=== PATIENT | male | born 1935 | race Caucasian/White ===

== ENCOUNTER 2021-08-23 12:13 | Emergency (ER) | payer MEDICARE, BC ==
[2021-08-23 12:54] LABS: #Basophils 0.1 thou/uL (0.0-0.2); #Eosinphils 0.2 thou/uL (0.0-0.7); #Lymphocytes 1.9 thou/uL (1.20-3.40); #Monocytes 0.7 thou/uL (0.11-0.59); #Neutrophils 6.4 thou/uL (1.40-6.50); %Basophils 0.8 % (0.0-1.0); %Eosinophils 2.2 % (0.0-10.0); %Lymphocytes 19.9 % (21.0-51.0); %Monocytes 7.8 % (0.0-10.0); %Neutrophils 69.3 % (42.0-75.0); Hemoglobin 13.1 g/dL (14.0-18.0); Mean Corpuscular HGB CONC 33.3 g/dL (32.0-36.0); Mean Corpuscular Hemoglobin 31.5 pg (27.0-31.0); Mean Corpuscular Volume 94.5 fL (78.0-98.0); Mean Platelet Volume 7.4 fL (7.4-10.4); Platelet Count 229 thou/uL (130-400); RBC Distribution Width 12.4 % (11.5-14.5); Red Blood Cell (RBC) Count 4.15 mill/uL (4.70-6.10); White Blood Cell (WBC) Count 9.3 thou/uL (4.8-10.8)
[2021-08-23 13:12] LABS: ALT (SGPT) 21 U/L (8-55); AST (SGOT) 20 U/L (5-34); Albumin 3.7 g/dL (3.4-4.8); Alkaline Phosphatase 94 U/L (40-110); Anion Gap 11 mmol/L (10-20); BUN (Urea Nitrogen) 17 mg/dL (8.4-25.7); Bilirubin, Total 0.4 mg/dL (0.2-1.2); Calc. Creatinine Clearance 0 mL/min (70-130); Calcium 9.6 mg/dL (7.8-10.44); Carbon Dioxide 31 mmol/L (23-31); Chloride 101 mmol/L (98-107); Globulin 2.5 g/dL (2.4-3.5); Glucose 132 mg/dL (83-110); Potassium 3.9 mmol/L (3.5-5.1); Protein, Total 6.2 g/dL (5.8-8.1); Sodium 139 mmol/L (136-145)
[2021-08-23] MEDS ORDERED: Furosemide 40 MG TAB ONE (15:11)
== END 2021-08-23 14:21 | disposition home or self-care (01) ==
LOC: ERS 12:13
DX: R60.0 Localized edema (principal); I10 Essential (primary) hypertension; E78.5 Hyperlipidemia, unspecified; Z87.891 Personal history of nicotine dependence
CPT/HCPCS: 36415; 71045; 80053; 83880; 84484; 85025; 93005; 93970

== ENCOUNTER 2022-01-23 07:06 | Day surgery (SDC) | payer MEDICARE, BC ==
[2022-01-23 07:44] VITALS: TEMP 98.2; BMI 20.9
[2022-01-23 10:34] VITALS: BP 138/73
== END 2022-01-23 10:18 | disposition home or self-care (01) ==
LOC: RAD 07:06 → EDSTATUS 08:00 → RAD 10:18
PROVIDERS: ATTEND Surgery
PROC: B02B1ZZ Computerized Tomography (CT Scan) of Spinal Cord using Low Osmolar Contrast (ICD-10-PCS; principal; 2022-01-23)
DX: M51.36 Other intervertebral disc degeneration, lumbar region (principal); M47.816 Spondylosis without myelopathy or radiculopathy, lumbar region; M48.061 Spinal stenosis, lumbar region without neurogenic claudication; M51.37 Other intervertebral disc degeneration, lumbosacral region; M47.817 Spondylosis without myelopathy or radiculopathy, lumbosacral region; I71.4 Abdominal aortic aneurysm, without rupture; K57.30 Diverticulosis of large intestine without perforation or abscess without bleeding; Z79.82 Long term (current) use of aspirin; Z79.899 Other long term (current) drug therapy; Z88.5 Allergy status to narcotic agent
CPT/HCPCS: 62304; 72132; 77002

== ENCOUNTER 2024-08-18 21:48 | Emergency (ER) | payer MEDICARE | END 2024-08-18 23:30 | disposition home or self-care (01) | LOC: ERS 21:48 | DX: S70.01XA Contusion of right hip, initial encounter (principal); I10 Essential (primary) hypertension; W08.XXXA Fall from other furniture, initial encounter | CPT/HCPCS: 72170; 93005; 99284 ==